=== PATIENT | female | born 1930 | race Caucasian/White ===

== ENCOUNTER → 2016-08-08 | Outpatient (CLI) | payer OTHER ==
--- NOTE | 2016-08-08 12:42 | DX ---
Chest, Two Views at 1133 hours on August 08, 2016 History: TB screen. Comparison: January 2015. Findings: Cardiac silhouette is within normal range. Hyperinflation of the lungs. Thoracic dextroscol iosis. Atherosclerotic tortuous aorta. Left shoulder arthroplasty. No evidence of active granulomatou s disease. A 3 mm right upper lobe probable calcified granuloma appears stable. No pneumonia, congest peg heart failure, pleural effusion, or pneumothorax. Linear scarring in the right middle lobe. Impression: 1. COPD. 2. No evidence of active granulomatous disease.
== END ==
LOC: BMCIMAGING 11:37
PROVIDERS: ATTEND Internal Medicine
DX: Z11.1 Encounter for screening for respiratory tuberculosis (principal); J44.9 Chronic obstructive pulmonary disease, unspecified

== ENCOUNTER 2017-01-07 12:13 | Emergency (ER) | payer OTHER ==
[2017-01-07 12:30] VITALS: TEMP 98.4; O2SAT 93
--- NOTE | 2017-01-07 12:30 | EDPHY ---
H & P Time Seen by Provider: 01/07/17 12:29 HPI/ROS: Chief complaint. Actively dying HPI. 87-year-old female who has been somewhat irritable the last 2 days has a headache today. Daughter is concerned that she is maybe had a stroke. Patient is here by EMS. She says she short of breath but she took off her oxygen and her oxygen saturation 95% sat on room air. Denies focal weakness or paresthesias. No chest pain. She has some back pain. Denies fall or injury. Not sick and no fever or cough. She has not taken anything for her headache which is generalized. ROS Constitutional. Weakness Eyes. no problems with vision ENT. no sore throat, no nasal drainage Cardiovascular. no chest pain Respiratory. no shortness of breath, no cough Abdominal. no abdominal pain, no nausea/vomiting, no diarrhea . no problems urinating MS. no calf pain/swelling, no neck/back pain, no joint pain Skin. no rash Lymph. no swollen glands Neuro. Headache Past Medical/Surgical History: Hypothyroid, dementia. DNR orders here with the patient Social History: Single nonsmoker no alcohol Smoking Status: Never smoked Physical Exam: General Appearance: Alert well-developed female mild distress vital signs are stay Eyes: Pupils equal and round no pallor or injection. ENT, Mouth: Mucous membranes are moist. Respiratory: There are no retractions, lungs are clear to auscultation. Cardiovascular: Regular rate and rhythm. Gastrointestinal: Abdomen is soft and nontender, no masses, bowel sounds normal. Neurological: Awake and alert, sensory and motor exams grossly normal. Patient does not participate actively in neurologic exam. Cranial nerves appear to be intact without evidence of facial droop. Patient spontaneously moves arms or legs but unable to test [id number], [id number], pronator drift. Skin: Warm and dry, no rashes. Musculoskeletal: Neck is supple nontender. Extremities symmetrical, full range of motion. Psychiatric: Patient is oriented X 3, there is no agitation. Constitutional: Initial Vital Signs Temperature (C) 36.9 C 01/07/17 12:23 Heart Rate 64 01/07/17 12:23 Respiratory Rate 18 01/07/17 12:23 Blood Pressure 152/97 H 01/07/17 12:23 O2 Sat (%) 93 01/07/17 12:23 O2 Delivery Mode Room Air Allergies/Adverse Reactions: atorvastatin calcium [From Lipitor] Allergy (Unknown, Verified 03/11/13 16:00) hand pain rosuvastatin calcium [From Crestor] Allergy (Unknown, Verified 03/11/13 16:00) Rash Home Medications: Medication Instructions Recorded *Pharmacy Completed 03/11/13 03/11/13 Aspirin EC [Aspirin EC 81 mg (OTC)] 81 mg PO DAILY 03/11/13 Cholecalciferol Vit D3 [Vitamin D3 1,000 units PO DAILY 03/11/13 1000 units (OTC)] Donepezil HCl [Aricept 5 MG (RX)] 5 mg PO HS 03/11/13 Levothyroxine [Synthroid 88 mcg 88 mcg PO DAILY06 03/11/13 (RX)] Naproxen Sodium [Aleve 220 mg 220 mg PO BID PRN 03/11/13 (OTC)] Medical Decision Making - Diagnostics EKG Interpretation: EKG interpreted by me shows normal sinus rhythm with normal interval. There is left axis deviation. QRS is otherwise normal. There is no significant ST elevation or depression. No arrhythmia. Rate is 58 Imaging Results: Imaging Impressions Chest X-Ray 01/07/17 12:40 Impression: Negative for acute cardiopulmonary abnormality. Head CT 01/07/17 12:40 Impression: 1. Stable moderate atrophy. 2. No hemorrhage, mass effect, or definite acute peripheral infarct. 3. Stable moderate microvascular ischemic disease. Findings discussed with Naseem Milian M.D. at 13:10 hour, 01/07/2017. Lumbar Spine X-Ray 01/07/17 13:33 Impression: Stable radiographic appearance of the lumbar spine when compared to previous MRI of August 18, 2014. Head CT reviewed by me and discussed with Dr. Haywood is nonacute One-view chest x-ray interpreted by me shows no evidence for pneumonia Lumbar spine x-ray reviewed by me which shows previous kyphoplasties at L1, L2, L3. However no acute compression fracture Procedures: IV normal saline, monitor. Tylenol for headache ED Course/Re-evaluation: Re-evaluation 1:30 p.m.--patient is feeling better. However she now is complaining of low back pain. She apparently has a history of lumbar compression fractures. She is tender at L2-L3 area by my exam Re-evaluation 2:00 p.m.. Patient feels much better and has no complaints now. The patient, her daughter, and I reviewed her labs imaging studies and x-ray findings. We discussed treatment plan including criteria for return importance of follow-up and further evaluation. They expressed understanding and agreement Differential Diagnosis: I have considered intracranial bleeding and CVA. Acute coronary syndrome, lumbar compression fractures. Fortunately no acute findings. Treatment plan will be symptomatic - Data Points Laboratory Results: Laboratory Results 01/07/17 12:42 01/07/17 12:42 01/07/17 01/07/17 12:42 12:42 WBC 5.75 10^3/uL 10^3/uL (3.80-9.50) RBC 4.72 10^6/uL 10^6/uL (4.18-5.33) Hgb 14.1 g/dL g/dL (12.6-16.3) Hct 42.2 % % (38.0-47.0) MCV 89.4 fL fL (81.5-99.8) MCH 29.9 pg pg (27.9-34.1) MCHC 33.4 g/dL g/dL (32.4-36.7) RDW 13.6 % % (11.5-15.2) Plt Count 304 10^3/uL 10^3/uL (150-400) MPV 9.3 fL fL (8.7-11.7) Neut % (Auto) 52.3 % % (39.3-74.2) Lymph % (Auto) 33.6 % % (15.0-45.0) [place] % (Auto) 8.7 % % (4.5-13.0) Eos % (Auto) 3.8 % % (0.6-7.6) Baso % (Auto) 1.4 % % (0.3-1.7) Nucleat RBC Rel Count 0.0 % % (0.0-0.2) Absolute Neuts (auto) 3.01 10^3/uL 10^3/uL (1.70-6.50) Absolute Lymphs (auto) 1.93 10^3/uL 10^3/uL (1.00-3.00) Absolute Monos (auto) 0.50 10^3/uL 10^3/uL (0.30-0.80) Absolute Eos (auto) 0.22 10^3/uL 10^3/uL (0.03-0.40) Absolute Basos (auto) 0.08 10^3/uL 10^3/uL (0.02-0.10) Absolute Nucleated RBC 0.00 10^3/uL 10^3/uL (0-0.01) Immature Gran % 0.2 % % (0.0-1.1) Immature Gran # 0.01 10^3/uL 10^3/uL (0.00-0.10) Sodium 139 mEq/L mEq/L (134-144) Potassium 4.2 mEq/L mEq/L (3.5-5.2) Chloride 102 mEq/L mEq/L (97-110) Carbon Dioxide 25 mEq/l mEq/l (22-31) Anion Gap 12 mEq/L mEq/L (8-16) BUN 20 mg/dL mg/dL (7-23) Creatinine 1.0 mg/dL mg/dL (0.6-1.0) Estimated GFR 53 Glucose 95 mg/dL mg/dL (70-100) Calcium 9.6 mg/dL mg/dL (8.5-10.4) Troponin I < 0.012 ng/mL ng/mL (0-0.034) Medications Given: Discontinued Medications Acetaminophen (Tylenol) 650 mg PO EDNOW ONE Stop: 01/07/17 12:39 Last Admin: 01/07/17 12:45 Dose: Not Given Acetaminophen (Tylenol) 650 mg PO EDNOW ONE Stop: 01/07/17 12:42 Last Admin: 01/07/17 12:45 Dose: 650 mg Departure - Departure Disposition: Home, Routine, Self-Care Clinical Impression: Headache Qualifiers: Headache type: unspecified Headache chronicity pattern: acute headache Condition: Good Instructions: Acute Headache (ED) Additional Instructions: Tylenol every 4-6 hours as needed for headache. Continue regular medications. Return for worsening symptoms including fever vomiting. Re-evaluation 1-2 days for continuing symptoms Referrals: Patient,NotPresent [Primary Care Provider] - As per Instructions
[2017-01-07] MEDS ORDERED: ACETAMINOPHEN 325 MG TAB PO ONE ×2 (12:38→12:41)
[2017-01-07 12:48] LABS: % IMMATURE GRANULYOCYTES 0.2 % (0.0-1.1); ABSOLUTE IMMATURE GRANULOCYTES 0.01 10^3/uL (0.00-0.10); ADD DIFF? NO; ADD MORPH? NO; ADD SCAN? NO; ATYPICAL LYMPHOCYTE FLAG 20 (0-99); FRAGMENT RBC FLAG 0 (0-99); HEMATOCRIT 42.2 % (38.0-47.0); HEMOGLOBIN 14.1 g/dL (12.6-16.3); LEFT SHIFT FLG 0 (0-99); LIPEMIA HEMOLYSIS FLAG 80 (0-99); MEAN CELL HEMOGLOBIN 29.9 pg (27.9-34.1); MEAN CELL HEMOGLOBIN CONCENTR. 33.4 g/dL (32.4-36.7); MEAN CELL VOLUME 89.4 fL (81.5-99.8); MEAN PLATELET VOLUME 9.3 fL (8.7-11.7); PLATELET CLUMPS FLAG 0 (0-99); PLATELET COUNT 304 10^3/uL (150-400); RED BLOOD CELL COUNT 4.72 10^6/uL (4.18-5.33); RED CELL DISTRIBUTION WIDTH 13.6 % (11.5-15.2)
--- NOTE | 2017-01-07 12:52 | CPEKG ---
Heart Rate: 58 RR Interval: 1034 P-R Interval: 156 QRSD Interval: 94 QT Interval: 432 QTC Interval: 425 P [place]: 46 QRS [place]: -14 T Wave [place]: 45 EKG Severity - NORMAL ECG - EKG Impression: SINUS RHYTHM Electronically Signed By: Naseem Milian 07-Jan-2017 15:50:13
[2017-01-07 13:00] LABS: ANION GAP 12 mEq/L (8-16); CALCIUM 9.6 mg/dL (8.5-10.4); CARBON DIOXIDE 25 mEq/l (22-31); CHLORIDE 102 mEq/L (97-110); GLOMERULAR FILTRATION RATE 53; GLUCOSE 95 mg/dL (70-100); POTASSIUM 4.2 mEq/L (3.5-5.2); SODIUM 139 mEq/L (134-144)
[2017-01-07 13:11] LABS: TROPONIN I < 0.012 ng/mL (0-0.034)
[2017-01-07 14:16] VITALS: BP 118/67; PULSE 60; RESP 16
== END 2017-01-07 14:34 | disposition home or self-care (01) ==
LOC: EDUNIT# → EDBD
DX: R51 Headache (principal); Z79.82 Long term (current) use of aspirin

== ENCOUNTER 2017-01-09 01:58 | Emergency (ER) | payer OTHER ==
[2017-01-09 02:10] VITALS: RESP 16; O2SAT 96
[2017-01-09 02:11] LABS: COLOR YELLOW; LEUKOCYTE ESTERASE,URINE TRACE (NEGATIVE); NITRITE,URINE POSITIVE (NEGATIVE)
--- NOTE | 2017-01-09 02:15 | EDPHY ---
H & P Stated Complaint: found down-hx of dementia Time Seen by Provider: 01/09/17 02:06 HPI/ROS: Chief Complaint: Found down, decreased responsiveness HPI: 87-year-old woman from [facility] was found down on the floor in the kitchen area. Per EMS the patient was lying on the ground on top of a blanket that appear to events that there purpose fully. Patient initially was not answering questions but would arouse and yell stop it with sternal rub. Patient was following some commands but still not answering questions for EMS. She was seen here here 2 days ago with complaints of headache and had negative CT scanning done at that time. Patient otherwise is not answering any questions for me. When I ask her to talk to me she is tells me "I do not want to talk". ROS: Unavailable secondary to the patient unwilling to answer questions at this time PMH: Lumbar fractures, dementia Social History: No smoking, no alcohol, no recreational drug use Family History: non-contributory Physical Exam: Gen: Awake, way with eyes closed, not responding to questions but signing stop it to sternal rub and stating she does not want to talk. She is following commands HEENT: Nose: no rhinorrhea Eyes: PERRLA, EOMI Mouth: Moist mucosa Neck: Supple, no JVD Chest: nontender, lungs clear to auscultation Heart: S1, S2 normal, no murmur Abd: Soft, non-tender, no guarding Back: no CVA tenderness, no midline tenderness Ext: no edema, non-tender Skin: no rash Neuro: CN II-XII intact, Sensation grossly intact, Strength 5/5 in bilateral upper and lower extremities - Personal History Current Tetanus Diphtheria and Acellular Pertussis (TDAP): Unsure - Medical/Surgical History Hx Asthma: No Hx Chronic Respiratory Disease: No Hx Diabetes: No Hx Cardiac Disease: No Hx Renal Disease: No Hx Cirrhosis: No Hx Alcoholism: No Hx HIV/AIDS: No Hx Splenectomy or Spleen Trauma: No Other PMH: pmh- oa, hypothyroid, poor historian. Dementia. - Social History Smoking Status: Never smoked Constitutional: Initial Vital Signs Temperature (C) 36.6 C 01/09/17 02:07 Heart Rate 61 01/09/17 02:07 Respiratory Rate 16 01/09/17 02:07 Blood Pressure 134/77 H 01/09/17 02:07 O2 Sat (%) 96 01/09/17 02:07 O2 Delivery Mode Room Air Allergies/Adverse Reactions: atorvastatin calcium [From Lipitor] Allergy (Unknown, Verified 03/11/13 16:00) hand pain rosuvastatin calcium [From Crestor] Allergy (Unknown, Verified 03/11/13 16:00) Rash Home Medications: Medication Instructions Recorded *Pharmacy Completed 03/11/13 03/11/13 Aspirin EC [Aspirin EC 81 mg (OTC)] 81 mg PO DAILY 03/11/13 Cholecalciferol Vit D3 [Vitamin D3 1,000 units PO DAILY 03/11/13 1000 units (OTC)] Donepezil HCl [Aricept 5 MG (RX)] 5 mg PO HS 03/11/13 Levothyroxine [Synthroid 88 mcg 88 mcg PO DAILY06 03/11/13 (RX)] Naproxen Sodium [Aleve 220 mg 220 mg PO BID PRN 03/11/13 (OTC)] Nitrofurantoin Monohyd/M-Cryst 100 mg PO BID #10 capsule 01/09/17 [Macrobid 100 mg Capsule] Medical Decision Making - Diagnostics Imaging Results: CT scan of the brain shows atrophy but no acute process per Dr. Dawkins. Imaging: Discussed imaging studies w/ medical office scheduler Radiologist ED Course/Re-evaluation: I have reviewed the patient's chart from 2 days ago. She had a negative workup including a a normal CBC and normal chemistry at that time. She also had a negative CT scan of her head. Given her new being found down and decreased responsiveness and being found down unfortunately will need to repeat the CT head. Will also add urinalysis. CT scan of the head is negative. Urinalysis is positive for UTI. She has been given Macrobid. Patient will be discharged back to her nursing facility for further care. - Data Points Laboratory Results: 01/09/17 02:00 Urine Color YELLOW Urine Appearance CLEAR Urine pH 5.0 (5.0-7.5) Ur Specific [place] 1.011 (1.002-1.030) Urine Protein NEGATIVE (NEGATIVE) Urine Ketones NEGATIVE (NEGATIVE) Urine Blood NEGATIVE (NEGATIVE) Urine Nitrate POSITIVE H (NEGATIVE) Urine Bilirubin NEGATIVE (NEGATIVE) Urine Urobilinogen NEGATIVE EU EU (0.2-1.0) Ur Leukocyte Esterase TRACE H (NEGATIVE) Urine RBC 1-3 /hpf /hpf (0-3) Urine WBC 15-25 /hpf H /hpf (0-3) Ur Epithelial Cells TRACE /lpf /lpf (NONE-1+) Urine Bacteria 3+ /hpf H /hpf (NONE SEEN) Urine Glucose NEGATIVE (NEGATIVE) Medications Given: Discontinued Medications Nitrofurantoin Macrocrystals (Macrobid) 100 mg PO EDNOW ONE PRN Reason: Protocol Stop: 01/09/17 02:45 Last Admin: 01/09/17 02:46 Dose: 100 mg Departure - Departure Disposition: Home, Routine, Self-Care Clinical Impression: Urinary tract infection Condition: Good Instructions: Urinary Tract Infection in Women (ED) Additional Instructions: Follow up with your doctor in 2-3 days for re-evaluation. Referrals: Patient,NotPresent [Primary Care Provider] - As per Instructions Prescriptions: Nitrofurantoin Monohyd/M-Cryst [Macrobid 100 mg Capsule] 100 mg PO BID #10 capsule
[2017-01-09 02:35] LABS: BACTERIA 3+ /hpf (NONE SEEN); WBC,URINE 15-25 /hpf (0-3)
[2017-01-09] MEDS ORDERED: NITROFURANTOIN MACROBID 100 MG CAP PO ONE ×2 (02:44)
[2017-01-09 03:52] VITALS: BP 121/74; PULSE 67; TEMP 98.1
== END 2017-01-09 03:53 | disposition home or self-care (01) ==
LOC: EDUNIT#
DX: N39.0 Urinary tract infection, site not specified (principal); B96.20 Unspecified Escherichia coli [E. coli] as the cause of diseases classified elsewhere; Z79.82 Long term (current) use of aspirin

== ENCOUNTER 2017-06-29 14:05 | Emergency (ER) | payer OTHER ==
[2017-06-29] MEDS ORDERED: NS 1,000 ML IV ONE (14:16)
--- NOTE | 2017-06-29 14:16 | CPEKG ---
Heart Rate: 64 RR Interval: 938 P-R Interval: 164 QRSD Interval: 94 QT Interval: 432 QTC Interval: 446 P [place]: 46 QRS [place]: -7 T Wave [place]: 37 EKG Severity - NORMAL ECG - EKG Impression: SINUS RHYTHM Electronically Signed By: Ajay Corbin 29-Jun-2017 15:58:25
--- NOTE | 2017-06-29 14:17 | EDPHY ---
H & P Time Seen by Provider: 06/29/17 14:16 HPI/ROS: CHIEF COMPLAINT: Presyncope HISTORY OF PRESENT ILLNESS: The patient presents to the emergency department by paramedics with a reported history of presyncope. In the emergency department, the patient is a fairly vague historian. She has no immediate recollection of the events prompting her transfer to the emergency department. The patient denies any complaints of acute pain, difficulty breathing, numbness , weakness, fever, recent fall or trauma. REVIEW OF SYSTEMS: A comprehensive 10 point review of systems is otherwise negative aside from elements mentioned in the history of present illness however felt to be somewhat unreliable Source: Patient Exam Limitations: No limitations - Medical/Surgical History Hx Asthma: No Hx Chronic Respiratory Disease: No Hx Diabetes: No Hx Cardiac Disease: No Hx Renal Disease: No Hx Cirrhosis: No Hx Alcoholism: No Hx HIV/AIDS: No Hx Splenectomy or Spleen Trauma: No Other PMH: pmh- oa, hypothyroid, poor historian. Dementia. - Social History Smoking Status: Never smoked - Physical Exam Exam: General Appearance: Alert, no distress Eyes: Pupils equal and round no pallor or injection ENT, Mouth: Mucous membranes moist Respiratory: There are no retractions, lungs are clear to auscultation Cardiovascular: Regular rate and rhythm Gastrointestinal: Abdomen is soft and nontender, no masses, bowel sounds normal Neurological: 5/5 strength all 4 extremities, normal sensory exam Skin: Warm and dry, no rashes Musculoskeletal: Neck is supple nontender Extremities: symmetrical, full range of motion Psychiatric: Alert and oriented x1 (likely baseline) Constitutional: Initial Vital Signs Temperature (C) 36.8 C 06/29/17 14:26 Heart Rate 65 06/29/17 14:26 Respiratory Rate 16 06/29/17 14:26 Blood Pressure 113/67 06/29/17 14:26 O2 Sat (%) 94 06/29/17 14:26 O2 Delivery Mode Room Air Allergies/Adverse Reactions: rosuvastatin calcium [From Crestor] Allergy (Unknown, Verified 01/09/17 03:48) Rash Home Medications: Medication Instructions Recorded Levothyroxine [Synthroid 88 mcg 88 mcg PO DAILY06 03/11/13 (RX)] Bentyl 20 MG (*) 06/29/17 Coreg 06/29/17 Fioricet (*) 06/29/17 Flexeril 10 MG (*) 06/29/17 Fluticasone Propionate 06/29/17 Gabapentin 06/29/17 Lipitor 06/29/17 Paxil 20mg (*) 06/29/17 Protonix 06/29/17 Zyrtec 06/29/17 Medical Decision Making - Diagnostics EKG Interpretation: EKG: Complete interpretation has been separately recorded in the [facility] archive. Summary impression: Sinus rhythm, rate 64 ED Course/Re-evaluation: The patient presents to the ED after a vasovagal episode. I obtained additional history from the patient's daughter. She reportedly developed diaphoresis, pale skin and was observed to have some garbled speech. She slumped to the ground in her symptoms quickly resolved. She had no focal numbness or weakness. 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 She has no history of a known arrhythmia. She does have frequent urinary tract infections and was last treated approximately 2 weeks ago. In the ED the patient has a normal neurologic examination aside from her dementia. The patient will be screen for urinary tract infection. The patient has had no recurrent syncopal episodes in the emergency department. I do feel that she can be discharged home if her urinalysis is normal. I had a discussion with her daughters and they are comfortable with this plan and disposition. Urinalysis is normal. Patient will be discharged home and advised to follow up with her primary care provider. She should return to the ED for recurrent symptoms or other concerns. Differential Diagnosis: Differential diagnosis considered includes stroke, TIA, vasovagal episode, arrhythmia, dehydration, anemia - Data Points Laboratory Results: Laboratory Results 06/29/17 14:00 06/29/17 14:00 06/29/17 06/29/17 06/29/17 15:35 14:00 14:00 WBC 7.01 10^3/uL 10^3/uL (3.80-9.50) RBC 4.34 10^6/uL 10^6/uL (4.18-5.33) Hgb 13.4 g/dL g/dL (12.6-16.3) Hct 40.6 % % (38.0-47.0) MCV 93.5 fL fL (81.5-99.8) MCH 30.9 pg pg (27.9-34.1) MCHC 33.0 g/dL g/dL (32.4-36.7) RDW 13.0 % % (11.5-15.2) Plt Count 307 10^3/uL 10^3/uL (150-400) MPV 9.5 fL fL (8.7-11.7) Neut % (Auto) 45.6 % % (39.3-74.2) Lymph % (Auto) 39.1 % % (15.0-45.0) Sac % (Auto) 8.7 % % (4.5-13.0) Eos % (Auto) 5.1 % % (0.6-7.6) Baso % (Auto) 1.1 % % (0.3-1.7) Nucleat RBC Rel Count 0.0 % % (0.0-0.2) Absolute Neuts (auto) 3.19 10^3/uL 10^3/uL (1.70-6.50) Absolute Lymphs (auto) 2.74 10^3/uL 10^3/uL (1.00-3.00) Absolute Monos (auto) 0.61 10^3/uL 10^3/uL (0.30-0.80) Absolute Eos (auto) 0.36 10^3/uL 10^3/uL (0.03-0.40) Absolute Basos (auto) 0.08 10^3/uL 10^3/uL (0.02-0.10) Absolute Nucleated RBC 0.00 10^3/uL 10^3/uL (0-0.01) Immature Gran % 0.4 % % (0.0-1.1) Immature Gran # 0.03 10^3/uL 10^3/uL (0.00-0.10) Sodium 144 mEq/L mEq/L (134-144) Potassium 4.3 mEq/L mEq/L (3.5-5.2) Chloride 105 mEq/L mEq/L (97-110) Carbon Dioxide 24 mEq/l mEq/l (22-31) Anion Gap 15 mEq/L mEq/L (8-16) BUN 23 mg/dL mg/dL (7-23) Creatinine 1.1 mg/dL H mg/dL (0.6-1.0) Estimated GFR 47 Glucose 101 mg/dL H mg/dL (70-100) Calcium 9.9 mg/dL mg/dL (8.5-10.4) Urine Color YELLOW Urine Appearance CLEAR Urine pH 5.0 (5.0-7.5) Ur Specific [place] 1.026 (1.002-1.030) Urine Protein NEGATIVE (NEGATIVE) Urine Ketones NEGATIVE (NEGATIVE) Urine Blood NEGATIVE (NEGATIVE) Urine Nitrate NEGATIVE (NEGATIVE) Urine Bilirubin NEGATIVE (NEGATIVE) Urine Urobilinogen NEGATIVE EU EU (0.2-1.0) Ur Leukocyte Esterase NEGATIVE (NEGATIVE) Urine Glucose NEGATIVE (NEGATIVE) Medications Given: Discontinued Medications Sodium Chloride (Ns) 1,000 mls @ 0 mls/hr IV EDNOW ONE; Wide Open PRN Reason: Protocol Stop: 06/29/17 14:17 Last Admin: 06/29/17 16:17 Dose: Not Given Departure - Departure Disposition: Home, Routine, Self-Care Clinical Impression: Vasovagal syncope Condition: Good Instructions: Hypotension (ED) Additional Instructions: 1. Please follow-up with your primary care provider as scheduled. 2. Return to the ED for any recurrent symptoms of passing out, numbness, weakness, fever, or other concerns Referrals: Socorro Limon MD [Medical Doctor] - As per Instructions
[2017-06-29 14:25] LABS: % IMMATURE GRANULYOCYTES 0.4 % (0.0-1.1); ABSOLUTE IMMATURE GRANULOCYTES 0.03 10^3/uL (0.00-0.10); ADD DIFF? NO; ADD MORPH? NO; ADD SCAN? NO; ATYPICAL LYMPHOCYTE FLAG 10 (0-99); FRAGMENT RBC FLAG 0 (0-99); HEMATOCRIT 40.6 % (38.0-47.0); HEMOGLOBIN 13.4 g/dL (12.6-16.3); LEFT SHIFT FLG 0 (0-99); LIPEMIA HEMOLYSIS FLAG 80 (0-99); MEAN CELL HEMOGLOBIN 30.9 pg (27.9-34.1); MEAN CELL VOLUME 93.5 fL (81.5-99.8); MEAN PLATELET VOLUME 9.5 fL (8.7-11.7); PLATELET CLUMPS FLAG 0 (0-99); PLATELET COUNT 307 10^3/uL (150-400); RED BLOOD CELL COUNT 4.34 10^6/uL (4.18-5.33)
[2017-06-29 14:30] VITALS: RESP 16
[2017-06-29 14:45] LABS: ANION GAP 15 mEq/L (8-16); CALCIUM 9.9 mg/dL (8.5-10.4); CARBON DIOXIDE 24 mEq/l (22-31); CHLORIDE 105 mEq/L (97-110); CREATININE 1.1 mg/dL (0.6-1.0); GLOMERULAR FILTRATION RATE 47; GLUCOSE 101 mg/dL (70-100); POTASSIUM 4.3 mEq/L (3.5-5.2); SODIUM 144 mEq/L (134-144)
[2017-06-29 15:50] LABS: COLOR YELLOW; LEUKOCYTE ESTERASE,URINE NEGATIVE (NEGATIVE); NITRITE,URINE NEGATIVE (NEGATIVE)
[2017-06-29 16:27] VITALS: BP 109/80; PULSE 80; TEMP 97.7; O2SAT 96
== END 2017-06-29 16:23 | disposition home or self-care (01) ==
LOC: EDUNIT#
DX: R55 Syncope and collapse (principal)